=== PATIENT | female | born 1985 | race Two or more races ===

== ENCOUNTER 2021-03-22 19:35 | Emergency (ER) | payer BC ==
[~2021-03-22] VITALS: Ht 160 cm; Wt 59.0 kg
[2021-03-22] MEDS ORDERED: LORazepam 2MG/ML-1ML VIAL IV ONE (20:00)
[2021-03-22] MEDS ORDERED: SODIUM CHLORIDE 0.9% 1,000 ML IV ONE (20:00)
[2021-03-22 20:55] LABS: Basophils # (auto) 0 10 ^3/uL (0-0.2); Basophils % (auto) 0.2 % (0.0-2.0); Eosinophils # (auto) 0 10 ^3/uL (0-0.8); Eosinophils % (auto) 0.1 % (0.0-7.0); Hematocrit 37.8 % (36.0-46.0); Hemoglobin 12.1 g/dL (12.2-16.2); Lymphocytes # (auto) 0.6 10 ^3/uL (0.4-5.4); Lymphocytes % (auto) 4.7 % (10.0-50.0); Mean Corpuscular Hemoglobin 27.7 pg (28.0-32.0); Mean Corpuscular Hgb Conc. 32.1 g/dL (32.0-36.0); Mean Corpuscular Volume 86.3 fL (80.0-100.0); Monocytes # (auto) 0.8 10 ^3/uL (0-1.3); Monocytes % (auto) 5.8 % (0.0-12.0); Neutrophils # (auto) 11.6 10 ^3/uL (1.6-8.6); Neutrophils % (auto) 89.2 % (37.0-80.0); Red Blood Cells 4.38 10^6/uL (4.0-5.20); White Blood Cell 13.1 10^3/uL (4.4-10.8)
[2021-03-22 21:11] LABS: INR 1.11 (0.9-1.15); Partial Thromboplastin Time 24.2 sec (23.6-33.0)
[2021-03-22 21:16] LABS: Albumin 3.7 g/dL (3.4-5.0); Calcium 7.9 mg/dL (8.5-10.1); Magnesium 2.2 mg/dL (1.6-2.6); Potassium 3.7 mmol/L (3.5-5.1)
[2021-03-22 21:22] LABS: BUN/Creatinine Ratio 18.4; Bilirubin, Total 0.5 mg/dL (0.2-1.0); Total Protein 6.7 g/dL (6.4-8.2)
[2021-03-23 00:52] LABS: Urine Bacteria NONE SEEN /hpf (None Seen); Urine Blood Negative /uL (Negative); Urine Mucus FEW (None Seen); Urine Specific Gravity 1.026 (1.001-1.035); Urine WBC 1 /hpf (0 - 5)
[2021-03-23 02:55] VITALS: BP 131/84
== END 2021-03-23 03:06 | disposition home or self-care (01) ==
LOC: ER 19:35 → EDBD 19:35 → EDUNIT# 19:35 → ER 03-23 03:06
DX: R10.13 Epigastric pain (principal); R11.2 Nausea with vomiting, unspecified; R19.7 Diarrhea, unspecified
CPT/HCPCS: 36415; 80053; 81001; 83735; 83880; 84484; 84702; 85025; 85610; 85730; 93005; 96361; 96374; 99284; J2060; J7030; 96366

== ENCOUNTER 2024-04-30 01:38 | Inpatient (IN) | payer BC, MEDICARE ==
[~2024-04-30] VITALS: Ht 160 cm; Wt 65.3 kg
--- NOTE | 2024-04-30 02:32 | ED.PDOC ---
History of Present Illness HPI Comments 38-year-old female is [id number]-ambulance for complaint of back pain, today. Per EMS report, patient endorses on ongoing back pain for the past 3x days following unprovoked and gradual onset that, suddenly, worsened, while asleep, 2 hours prior to ED arrival. She reports on pain being throughout her entire back, with no prior history of, that starts from the base of her neck and radiates to her tailbone, that worsens with movement and deep breathing and is more severe in her upper-back region than her lower-back region. Patient then elaborates on pain feeling similar to "multiple hammers banging against [her] spine" and having no relief with at-home prescription muscle relaxer use. Patient admits to medical history of anxiety, degenerative disc disorder of the cervical spine, epilepsy, lupus, radiculopathy, rheumatoid arthritis, and scoliosis and reports no recent significant events, such as injuries. Patient's vitals were commented by EMS to have been stable and within normal limits on scene and en route. She denies having headache, weakness, numbness, tingling, or other associated symptoms or modifiers at this time. Chief Complaint: Back Pain Time Seen by MD: 02:10 Primary Care Provider: GREGORIO Reviewed Notes: Nurses Notes, Quiller Runner Notes, Medications, Allergies Allergies: Coded Allergies: NO KNOWN ALLERGIES (Unverified , 11/23/14) Information Source: Patient, Emergency Med Personnel Mode of Arrival: EMS Severity: Moderate Timing: Days Duration: Since onset Prehospital treatment: 12 Lead EKG, Bacteriology Research Assistant Past Medical History PAST MEDICAL HISTORY: Anxiety, Seizures (epilepsy) Past Medical History (Other): degenerative disc disorder of the cervical spine, lupus, radiculopathy, rheumatoid arthritis, and scoliosis Surgical History: 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: No Pertinent 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 Family History Family History: No family hx of Cancer, No family hx of Heart isaiah, No family hx of HTN Social History Smoker: Non-Smoker Alcohol: Denies ETOH Use Drugs: Denies Drug Use Lives In: Home All Other Systems: Reviewed and Negative (Comprehensive systems review obtained and negative except for what is stated in the HPI.) Physical Exam General Appearance: No Apparent Distress, Normal, Other (appears uncomfortable) HEENT: Normal ENT Inspection, Pharynx Normal, TMs Normal Neck: Full Range of Motion, Non-Tender, Normal, Normal Inspection Respiratory: Chest Non-Tender, Lungs Clear, No Accessory Muscle Use, No Respiratory Distress, Normal Breath Sounds Cardiovascular: No Edema, No JVD, No Murmur, No Gallop, Normal Peripheral Pulses, Regular Rate/Rhythm Breast Exam: Deferred Gastrointestinal: No Organomegaly, Non Tender, No Pulsatile Mass, Normal Bowel Sounds, Soft Genitalia: Deferred Pelvic: Deferred Rectal: Deferred Extremities: No calf tenderness, Normal capillary refill, Normal inspection, Normal range of motion, Non-tender, No pedal edema Musculoskeletal : Apperance: Normal Neurologic: Alert, childrens club attendant II-XII nml as Tested, No Motor Deficits, Normal Affect, Normal Mood, No Sensory Deficits Cerebellar Function: Normal Reflexes: Normal Skin: Dry, Normal Color, Warm Lymphatic: No Adenopathy Was a procedure done? Was a procedure done?: No Differential Dx Considerations may include: Anxiety, musculoskeletal pain, arthritis, degenerative disc disease, radiculopathy, lupus flare-up, scoliosis X-Ray, Labs, Meds, VS Vital Signs Date Time Temp Pulse Resp B/P (MAP) Pulse Ox O2 Delivery O2 Flow Rate FiO2 04/30/24 02:33 98.2 79 21 116/75 (89) 100 98.2 04/30/24 01:46 98.4 94 24 103/52 (69) 96 Lab Test 04/30/24 02:23 Range/Units White Blood Count 6.4 4.4-10.8 10^3/uL Red Blood Count 4.58 4.0-5.20 10^6/uL Hemoglobin 13.2 12.2-16.2 g/dL Hematocrit 39.9 36.0-46.0 % Mean Corpuscular Volume 87.1 80.0-100.0 fL Mean Corpuscular Hemoglobin 28.7 28.0-32.0 pg Mean Corpuscular Hemoglobin Concent 33.0 32.0-36.0 g/dL Red Cell Distribution Width 12.8 11.8-14.3 % Platelet Count 216 140-450 10^3/uL Mean Platelet Volume 7.4 6.9-10.8 fL Neutrophils (%) (Auto) 40.3 37.0-80.0 % Lymphocytes (%) (Auto) 48.5 10.0-50.0 % Monocytes (%) (Auto) 10.7 0.0-12.0 % Eosinophils (%) (Auto) 0.1 0.0-7.0 % Basophils (%) (Auto) 0.4 0.0-2.0 % Neutrophils # (Auto) 2.6 1.6-8.6 10 ^3/uL Lymphocytes # (Auto) 3.1 0.4-5.4 10 ^3/uL Monocytes # (Auto) 0.7 0-1.3 10 ^3/uL Eosinophils # (Auto) 0 0-0.8 10 ^3/uL Basophils # (Auto) 0 0-0.2 10 ^3/uL Nucleated Red Blood Cells 0.1 % Sodium Level 139 136-145 mmol/L Potassium Level 3.9 3.5-5.1 mmol/L Chloride Level 105 98-107 mmol/L Carbon Dioxide Level 25 20-31 mmol/L Anion Gap 9 5-15 Blood Urea Nitrogen 12 9-23 mg/dL Creatinine 0.69 0.550-1.02 mg/dL Glomerular Filtration Rate Calc 115 >90 mL/min BUN/Creatinine Ratio 17.4 10.0-20.0 Serum Glucose 94 74-106 mg/dL Calcium Level 9.7 8.7-10.4 mg/dL Current Medications Medications (Trade) Dose Ordered Sig/Juliana Route Start Time Stop Time Status Last Admin Ketorolac Tromethamine (Toradol Injection) 15 mg ONCE ONCE IV 04/30/24 02:15 04/30/24 02:16 DC 04/30/24 02:47 Time of 1ST Reevaluation: 03:40 Reevaluation 1ST: Unchanged Patient Education/Counseling: Diagnosis, Treatment Family Education/Counseling: No Family Present Additional Information Previous visit documents reviewed: 03/22/2021 The following tests were ordered, and results were reviewed by me: UA, CBC, BMP Additional Information was gathered from interviewing the following independent historians: EMS I discussed treatment and results with medical personnel and: patient Departure 1 Departure Time of Disposition: 02:59 (Patient with severe intractable thoracic back pain. Patient with difficulty moving. Patient has red flags for back pain. We will admit patient for further workup and expert consultation) Impression: Primary Impression: Acute thoracic back pain Qualified Codes: M54.6 - Pain in thoracic spine Additional Impression: Generalized weakness Disposition: 09 ADMITTED INPATIENT Admit to: Med Surg Condition: Serious Critical Care Note Critical Care Time?: No Stability Stability form required: No Heart Score Heart Score: Heart Score Response (Comments) Value History N/A 0 EKG N/A 0 Age N/A 0 Risk Factors N/A 0 Troponin N/A 0 Total 0 I personally scribed for ELLIS JOE MD ([email or web address]) on 04/30/24 at 02:32. Electronically submitted by Bhavik Hollis ([email or web address]). ELLIS JOE MD Apr 30, 2024 02:32
[2024-04-30 02:37] LABS: Basophils # (auto) 0 10 ^3/uL (0-0.2); Basophils % (auto) 0.4 % (0.0-2.0); Eosinophils # (auto) 0 10 ^3/uL (0-0.8); Eosinophils % (auto) 0.1 % (0.0-7.0); Hematocrit 39.9 % (36.0-46.0); Hemoglobin 13.2 g/dL (12.2-16.2); Lymphocytes # (auto) 3.1 10 ^3/uL (0.4-5.4); Lymphocytes % (auto) 48.5 % (10.0-50.0); Mean Corpuscular Hemoglobin 28.7 pg (28.0-32.0); Mean Corpuscular Volume 87.1 fL (80.0-100.0); Monocytes # (auto) 0.7 10 ^3/uL (0-1.3); Monocytes % (auto) 10.7 % (0.0-12.0); Neutrophils # (auto) 2.6 10 ^3/uL (1.6-8.6); Neutrophils % (auto) 40.3 % (37.0-80.0); Nucleated Red Blood Cells % 0.1 %; Platelet Count (auto) 216 10^3/uL (140-450); Red Blood Cells 4.58 10^6/uL (4.0-5.20); Red Cell Distribution Width 12.8 % (11.8-14.3); White Blood Cell 6.4 10^3/uL (4.4-10.8)
[2024-04-30 02:44] LABS: Chloride 105 mmol/L (98-107); Potassium 3.9 mmol/L (3.5-5.1); Sodium 139 mmol/L (136-145)
[2024-04-30 02:45] LABS: Anion Gap 9 (5-15); Calcium 9.7 mg/dL (8.7-10.4); Carbon Dioxide 25 mmol/L (20-31)
[2024-04-30] MEDS: KETOROLAC TROMETH 30 MG/ML 1ML VIAL IV ONE (02:47)
[2024-04-30 02:50] LABS: BUN/Creatinine Ratio 17.4 (10.0-20.0); Blood Urea Nitrogen 12 mg/dL (9-23); Glucose 94 mg/dL (74-106)
[2024-04-30] MEDS: MIDAZOLAM HCL 2MG/2ML 2ml VIAL (1mg/ml) IV ONE (03:33)
--- NOTE | 2024-04-30 03:56 | DVH ---
CHEST RADIOGRAPH Indication: thoracic pain Technique: Single frontal view of the chest was obtained Comparison: None IMPRESSION: Heart appears normal in size. The lungs appear clear without focal airspace opacity, effusion, or pn eumothorax
[2024-04-30] MEDS ORDERED: ACETAMINOPHEN 325 MG TAB PO PRN (04:15)
[2024-04-30 04:40] LABS: Alanine Aminotransferase 29 U/L (7-40); Albumin 4.4 g/dL (3.2-4.8); Alkaline Phosphatase 96 U/L (46-116); Aspartate Aminotransferase 22 U/L (13-40); Magnesium 2.1 mg/dL (1.6-2.6); Total Protein 6.6 g/dL (5.7-8.2)
[2024-04-30 04:41] LABS: Bilirubin, Direct < 0.1 mg/dL (<0.3); Bilirubin, Total < 0.2 mg/dL (0.2-1.0); Blood Alcohol < 3.0 mg/dL (<10); INR 1.03 (0.9-1.15); Partial Thromboplastin Time 27.1 SEC (24.5-34.5); Prothrombin Time 10.9 sec (9.3-11.8)
[2024-04-30] MEDS: SODIUM CHLORIDE 0.9% 1,000 ML IV SCH (04:46)
[2024-04-30] MEDS: HYDROcodone-ACET 7.5/325MG TAB PO ONE (04:46)
[2024-04-30 05:01] VITALS: PULSE 79; RESP 21; O2SAT 100
--- NOTE | 2024-04-30 05:20 | DVH ---
EXAM: CT Cervical Spine Without Intravenous Contrast CLINICAL INDICATION: Degenerative disc disorder TECHNIQUE: Axial computed tomography images of the cervical spine without intravenous contrast. Thi s CT exam was performed using one or more of the following dose reduction techniques: automated expo sure control, adjustment of the mA and/or kV according to patient size, and/or use of iterative recon struction technique. CONTRAST: COMPARISON: None FINDINGS: VERTEBRAE: Unremarkable. No acute fracture. DISCS/SPINAL CANAL/NEURAL FORAMINA: No acute findings. No significant spinal canal stenosis. SOFT TISSUES: Unremarkable. LUNG APICES: Partially visualized lung emphysema. OTHER FINDINGS: . IMPRESSION: No acute fracture.
[2024-04-30 05:23] LABS: Urine Bacteria None Seen /hpf (None Seen); Urine Blood Negative /uL (Negative); Urine Budding Yeast OCCASIONAL /hpf (None Seen); Urine Clarity Clear (Clear); Urine Color Light-Yellow (Yellow); Urine Protein, UAD Negative (Negative); Urine Specific Gravity 1.012 (1.001-1.035); Urine Squamous Epithelial Cell FEW /hpf (<5); Urine Urobilinogen Normal (Negative)
--- NOTE | 2024-04-30 05:26 | DVH ---
EXAM: CT Thoracic and Lumbar Spine Without Intravenous Contrast CLINICAL INDICATION: Disc degenerative changes TECHNIQUE: Axial computed tomography images of the thoracic and lumbar spine without intravenous con trast. This CT exam was performed using one or more of the following dose reduction techniques: aut omated exposure control, adjustment of the mA and/or kV according to patient size, and/or use of iter ative reconstruction technique. CONTRAST: COMPARISON: None FINDINGS: VERTEBRAE: Unremarkable. No acute fracture. DISCS/SPINAL CANAL/NEURAL FORAMINA: No acute findings. No significant spinal canal stenosis. SOFT TISSUES: Unremarkable. LUNGS AND PLEURAL SPACES: Partially visualized lung emphysema. Dependent atelectasis, bilaterally. OTHER FINDINGS: . IMPRESSION: No acute findings in the thoracic or lumbar spine.
[2024-04-30 05:35] LABS: Erythrocyte Sedimentation Rate 2 mm/hr (0-20)
[2024-04-30 05:39] LABS: Barbiturate Scree,Urine Neg (NEGATIVE); Benzodiazephine Screen, Urine Neg (NEGATIVE)
--- NOTE | 2024-04-30 05:50 | DVHHPRES ---
History of Present Illness Resident Creating Document: ISAI EVANS RESIDENT History of Present Illness Nidia Lr is a 38 years old female with a PMH of degenerative disc disorder of cervical spine, radiculopathy, lupus, scoliosis, anxiety, seizures presented to the ED with a chief complaints of worsening of upper back pain for three days. Patient reported three days back while lifting heavy objects patient felt discomfort, soreness in upper back which has been gradually progressing worsened today night, woke up in the sleep with a severe pain worsened with upper and lower extremity movement and neck movements, felt like spine is breaking into pieces , called EMS and got here. Patient reported she does have history of scoliosis and she will occasional back pain but she never felt pain like this before. On my assessment patient denies fever, joint pain, chest pain, abdominal pain, recent trauma and other associated symptoms. PMH:degenerative disc disorder of cervical spine, radiculopathy, lupus for one and half years scoliosis, anxiety, seizures since 15 years old, lupus since one and [age] year. PSH: Temporal lobectomy Family history: Breast and liver cancer maternal aunts Social history: Lives with family. Denies smoking, alcohol and other drug abuse Allergies: No known allergies Home medications: Dilantin 200 two tablets night, gabapentin 600 mg b.i.d., Zoloft Review of Systems Constitutional: No: Fever, Chills, Sweats, Weakness, Malaise, Other Eyes: No: Pain, Vision change, Conjunctivae inflammation, Eyelid inflammation, Other, Redness ENT: No: Ear pain, Ear discharge, Nose pain, Nose discharge, Nose congestion, Mouth pain, Mouth swelling, Throat pain, Throat swelling, Other Respiratory: No: Cough, Dry, Shortness of breath, SOB with excertion, Wheezing, Hemoptysis, Pleuritic Pain, Sputum, Wheezing, Other Cardiovascular: No: Chest Pain, Palpitations, Orthopnea, Paroxysmal Noc. Dyspnea, Edema, Lt Headedness, Other Genitourinary: No Dysuria, No Frequency, No Incontinence, No Hematuria, No Retention, No Other Musculoskeletal: neck pain, back pain Skin: No: Rash, Lesions, Jaundice, Bruising, Other Neurological: No: Weakness, Numbness, Incoordination, Change in speech, Confusion, Seizures, Other Allergies: Coded Allergies: NO KNOWN ALLERGIES (Unverified , 11/23/14) Medications Current Medications Medications Dose Ordered Sig/Julinaa Route Start Time Stop Time Status Last Admin Dose Admin Sodium Chloride 10 ml Q8HR IV 04/30/24 06:00 Sodium Chloride 1,000 ml @ 60 mls/hr [id number] IV 04/30/24 04:15 04/30/24 04:46 60 MLS/HR Acetaminophen/ Hydrocodone Bitart 1 tab Q4HP PRN PO 04/30/24 04:15 Ondansetron HCl 4 mg Q4HP PRN IV 04/30/24 04:15 Enoxaparin Sodium 40 mg DAILY SC 04/30/24 10:00 Acetaminophen 650 mg Q6HP PRN PO 04/30/24 04:15 Morphine Sulfate 2 mg Q4HPRN PRN IV 04/30/24 04:15 Phenytoin Sodium 200 mg QPM PO 04/30/24 18:00 Gabapentin 600 mg TID PO 04/30/24 06:00 Exam Vital Signs Vital Signs Date Time Temp Pulse Resp B/P (MAP) Pulse Ox O2 Delivery O2 Flow Rate FiO2 04/30/24 05:01 79 21 100 Nasal Cannula* 3 32 04/30/24 04:57 116/75 (89) 04/30/24 02:33 98.2 98.2 Exam Neck pain, back pain Pt is lying on bed General Appearance: Alert, Oriented X3, Cooperative, severe distress HEENT: Atraumatic, Mucous membranes moist/pink Respiratory: Clear to auscultation, Normal air movement, No added sounds Cardiovascular: Regular rate, Normal S1, Normal S2, No murmurs Abdominal: Active bowel sounds, Soft, no distention, no tenderness Extremities: No edema, Normal pulses, No tenderness/swelling MSK: Severe pain and tenderness in spine to passive movement neck, upper and lower extremities Skin: No Significant rash, except past surgical scars Neuro: Normal speech, sensorimotor deficits none Psych/Mental Status: Mental status NL, Mood NL Nurse was there as sharperone during examination Labs/Xrays Labs Test 04/30/24 04:44 04/30/24 04:30 04/30/24 04:03 04/30/24 04:00 Range/Units B-Type Natriuretic Peptide 17.12 0-100 pg/mL Hemoglobin A1c 5.1 <5.7 % A1C Test 04/30/24 02:23 Range/Units White Blood Count 6.4 4.4-10.8 10^3/uL Red Blood Count 4.58 4.0-5.20 10^6/uL Hemoglobin 13.2 12.2-16.2 g/dL Hematocrit 39.9 36.0-46.0 % Mean Corpuscular Volume 87.1 80.0-100.0 fL Mean Corpuscular Hemoglobin 28.7 28.0-32.0 pg Mean Corpuscular Hemoglobin Concent 33.0 32.0-36.0 g/dL Red Cell Distribution Width 12.8 11.8-14.3 % Platelet Count 216 140-450 10^3/uL Mean Platelet Volume 7.4 6.9-10.8 fL Neutrophils (%) (Auto) 40.3 37.0-80.0 % Lymphocytes (%) (Auto) 48.5 10.0-50.0 % Monocytes (%) (Auto) 10.7 0.0-12.0 % Eosinophils (%) (Auto) 0.1 0.0-7.0 % Basophils (%) (Auto) 0.4 0.0-2.0 % Neutrophils # (Auto) 2.6 1.6-8.6 10 ^3/uL Lymphocytes # (Auto) 3.1 0.4-5.4 10 ^3/uL Monocytes # (Auto) 0.7 0-1.3 10 ^3/uL Eosinophils # (Auto) 0 0-0.8 10 ^3/uL Basophils # (Auto) 0 0-0.2 10 ^3/uL Nucleated Red Blood Cells 0.1 % Erythrocyte Sedimentation Rate 2 0-20 mm/hr Prothrombin Time 10.9 9.3-11.8 sec Prothrombin Time INR 1.03 0.9-1.15 Activated Partial Thromboplast Time 27.1 24.5-34.5 SEC Sodium Level 139 136-145 mmol/L Potassium Level 3.9 3.5-5.1 mmol/L Chloride Level 105 98-107 mmol/L Carbon Dioxide Level 25 20-31 mmol/L Anion Gap 9 5-15 Blood Urea Nitrogen 12 9-23 mg/dL Creatinine 0.69 0.550-1.02 mg/dL Glomerular Filtration Rate Calc 115 >90 mL/min BUN/Creatinine Ratio 17.4 10.0-20.0 Serum Glucose 94 74-106 mg/dL Lactic Acid Level 1.0 0.4-2.0 mmol/L Calcium Level 9.7 8.7-10.4 mg/dL Magnesium Level 2.1 1.6-2.6 mg/dL Total Bilirubin < 0.2 L 0.2-1.0 mg/dL Direct Bilirubin < 0.1 <0.3 mg/dL Aspartate Amino Transferase (AST) 22 13-40 U/L Alanine Aminotransferase (ALT) 29 7-40 U/L Alkaline Phosphatase 96 46-116 U/L Total Protein 6.6 5.7-8.2 g/dL Albumin 4.4 3.2-4.8 g/dL Thyroid Stimulating Hormone (TSH) 2.66 0.55-4.78 uIU/mL Beta HCG, Quantitative 0.6 L 1.5-4.2 mIU/mL Plasma/Serum Blood Alcohol < 3.0 <10 mg/dL Assessment/Plan Assessment/Plan # Acute upper back pain # ? cervical radiculopathy # rule out spinal stenosis -CT showed no acute changes -consider MRI -physical therapy -pain management # history of lupus -outpatient follow up # seizure disorder -resumed home meds No GI ppx Lovenox Cardiac diet Goals of care discussed with the patient for more than 29 minutes: Full code status Case discussed with Dr. Sims, patient and nurse Plan discussed with: Patient My Orders Orders - ISAI EVANS RESIDENT Procedure Category Date Status Time Admit ADMIT 04/30/24 Transmitted 04:03 Allergies KUSHAL 04/30/24 In Process 04:03 Code Status CODE 04/30/24 Transmitted 04:03 Sodium Chloride Lock PHA 04/30/24 In Process (Saline Lock Ns) 06:00 Sodium Chloride 0.9% PHA 04/30/24 In Process 04:15 Hydrocodone-Acet PHA 04/30/24 In Process 5/325mg Tab (Chauncey 04:15 Ondansetron Hcl PHA 04/30/24 In Process (Zofran) 04:15 Enoxaparin Sodium PHA 04/30/24 In Process (Lovenox) 10:00 Cardiac DIET 04/30/24 Transmitted Diet-2gna,Lofat,Lochol Breakfast Condition: Stable KUSHAL 04/30/24 In Process 04:03 Acetaminophen Tablet PHA 04/30/24 In Process (Tylenol Tablet) 04:15 Morphine Sulfate PHA 04/30/24 In Process Injection 04:15 Hepatic Panel LAB 04/30/24 In Process 04:03 Blood Alcohol LAB 04/30/24 In Process 04:03 C-Reactive Protein LAB 04/30/24 In Process 04:03 Covid19 Antigen Anisa LAB 04/30/24 In Process Drug Screen LAB 04/30/24 Logged 04:03 Magnesium LAB 04/30/24 In Process 04:03 Rapid Influenza A&B LAB 04/30/24 In Process 04:03 Urinalysis LAB 04/30/24 Logged 04:03 Insert Lucero Catheter KUSHAL 04/30/24 In Process 04:11 Phenytoin Capsule PHA 04/30/24 In Process (Dilantin Capsule) 18:00 Gabapentin Capsule PHA 04/30/24 In Process (Neurontin Capsule) 06:[address] 04/30/24 Resulted Contrast 04:[address] 04/30/24 Resulted Contras 04:25 Date of Service: Apr 30, 2024 Billing Provider: DAVION SIMS MD Common Visit Codes: [id number] INP/OBS CARE (HIGH) ISAI EVANS RESIDENT Apr 30, 2024 05:50 DAVION SIMS MD Apr 30, 2024 17:54
[2024-04-30 05:55] LABS: Amphetamine Screen, Urine Neg (NEGATIVE); Cannabinoid Screen, Urine Neg (NEGATIVE); Cocaine Screen, Urine Neg (NEGATIVE); Opiate Scree,Urine Neg (NEGATIVE); Phencyclidine Screen, Urine Neg (NEGATIVE)
[2024-04-30 05:58] LABS: COVID19 ANTIGEN SOFIA FIA NEGATIVE (NEGATIVE)
[2024-04-30 05:58] LABS: Rapid Influenza A Negative (Negative); Rapid Influenza B Negative (Negative)
[2024-04-30 06:05] LABS: CRP High Sensitivity 0.03 mg/dL (<1.0)
[2024-04-30] MEDS: SODIUM CHLOR 0.9% PF (SALINE LOCK) 10ML VIAL/SYR IV SCH (06:17)
[2024-04-30] MEDS: GABAPENTIN 300 MG CAP PO SCH (06:18)
[2024-04-30] MEDS ORDERED: ACETAMINOPHEN 325 MG TAB PO SCH (09:30)
[2024-04-30] MEDS: ENOXAPARIN SOD 40 MG/0.4 ML SYRINGE SC SCH (09:33)
--- NOTE | 2024-04-30 09:49 | DVHPNRES ---
Progress Note Date Seen: Apr 30, 2024 Resident Creating Document: NANCY ALLEN RESIDENT Medical Necessity Reason Pt with a Central, PICC or Fol: No Subjective Review of Systems This is a 38-year-old female with past medical history of epileptic seizures status post brain surgery 2019 on Dilantin, right shoulder radiculopathy, SLE not on medications, C-spine degenerative disease, scoliosis, anxiety presented to the ER with a chief complaint of severe intractable neck and back pain for the past 3 days. 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 Patient reports that she was feeling sore 3 days back during work, and that she woke up from sleep with intense 10/10 back pain from the neck to the lowest edge of the shoulder blades. She has been experiencing this pain for the past 3 nights, last night it was unbearable and therefore she decided to call EMS. She denies loss of urine or stool. Reports chronic constipation, last bowel movement four days back. Her pain worsens with any kind of bodily movements, more with left arm and left leg movement as compared to the right. She denies fever or chills or any trauma. Reports tingling of the bilateral arms. Denies muscle weakness. Reports last seizure was in February. On arrival, CT thoracic spine and cervical spine were completed which were unremarkable. Past medical/surgical history: See above Family history: Breast and liver cancer in maternal aunt Social history lives with mom and has 2 kids. Denies smoking/alcohol/drug use Home medications: Dilantin, gabapentin, Zoloft, ibuprofen, used hydroxychloroquine which did not improve her SLE, used Benlysta but stopped due to adverse effects. Patient seen and examined at the ER bedside. She is lying still in the bed, not moving due to the pain. Objective vital signs Vital Sign Date Time Temp Pulse Resp B/P (MAP) Pulse Ox O2 Delivery O2 Flow Rate FiO2 04/30/24 09:00 78 18 97/66 (76) 100 04/30/24 07:15 98.1 98.1 04/30/24 05:01 Nasal Cannula* 3 32 Total Intake and Output 04/29/24 04/29/24 04/30/24 15:00 23:00 07:00 Intake Total 120 ml Balance 120 ml medications Current Medications Medications Dose Ordered Sig/Juliana Route Start Time Stop Time Status Last Admin Dose Admin Sodium Chloride 10 ml Q8HR IV 04/30/24 06:00 04/30/24 06:17 10 ML Sodium Chloride 1,000 ml @ 60 mls/hr [id number] IV 04/30/24 04:15 04/30/24 04:46 60 MLS/HR Acetaminophen/ Hydrocodone Bitart 1 tab Q4HP PRN PO 04/30/24 04:15 Ondansetron HCl 4 mg Q4HP PRN IV 04/30/24 04:15 Enoxaparin Sodium 40 mg DAILY SC 04/30/24 10:00 04/30/24 09:33 40 MG Morphine Sulfate 2 mg Q4HPRN PRN IV 04/30/24 04:15 Phenytoin Sodium 200 mg QPM PO 04/30/24 18:00 Gabapentin 600 mg TID PO 04/30/24 06:00 04/30/24 06:18 600 MG Acetaminophen 650 mg Q6H PO 04/30/24 09:30 UNV Examination Young female patient lying in bed, in no acute distress General: Well-built, afebrile, palor, mucosae are moist Cardiovascular: Regular S1 and S2. No murmurs, gallops or rubs. No JVD elevation. No pedal edema Respiratory: Normal B/L air entry on room air. Clear lung sounds on auscultation Abdomen: Soft, nontender, nondistended, normoactive bowel sounds, no rebound tenderness, no organomegaly, no masses Genitourinary: Deferred MSK/skin: Mobilizes 4 limbs. Skin is dry and warm Neurological: No motor, no sensitive deficits, normal speech. Pupils are isocoric and reactive.. Severe back pain with movement of left upper extremity more than 30 and left lower extremity. Midline tenderness in the back. Psych/Mental Status: A/Ox3 laboratory and microbiology Laboratory Tests 04/30/24 02:23 Test 04/30/24 02:23 Range/Units Serum Glucose 94 74-106 mg/dL Labs and/or images reviewed: Labs reviewed by me, Image(s) reviewed by me Problem List/Assessment/Plan Problem List/Assessment/Plan Acute onset intractable back pain - differentials include spinal stenosis, degenerative disc disease, compression fracture Incapacitating neck pain with clinical suspicion of cervical radiculopathy Loss of lordosis and disc space narrowing at C5/6 and C6/7 History of degenerative disc disease History of Right shoulder radiculopathy History of scoliosis CT cervical/thoracic spine completed, unremarkable Physical therapy consulted Spinal surgeon consulted-This doesn't appear to be a surgical emergency. We will wait for MRI results to make definitive decision. Recommended IV Solu- Medrol 80 mg Q 8 hourly MRI cervical and thoracic spine pending SLE Denies taking any medication Previously used hydroxychloroquine and Benlysta History of epileptic seizures status post brain surgery 2019 Patient takes Dilantin Last seizure March 16, 2024 History of anxiety Lovenox 40 mg sc daily Regular diet Plan discussed with patient in which all questions have been answered Goals of care discussed with patient for more than 20 minutes, full code status Case discussed with Dr. Corral Plan discussed with: Patient My Orders My Orders Orders - NANCY ALLEN Procedure Category Date Status Time Acetaminophen Tablet PHA 04/30/24 Logged (Tylenol Tablet) 09:30 NANCY ALLEN Apr 30, 2024 09:49
[2024-04-30] MEDS: BACLOFEN 10 MG TAB PO ONE (11:10)
[2024-04-30] MEDS: LORazepam 2MG/ML-1ML VIAL IV ONE (11:13)
[2024-04-30] MEDS: ACETAMINOPHEN 325 MG TAB PO SCH (12:00)
--- NOTE | 2024-04-30 12:03 | DVHINCON2 ---
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 she doesn't have bowel or bladder incontinence but she is unable to get out of bed due to the suffering. no f/c/night sweats no specific inciting trauma no prior spine surgery Allergies and medications Allergies: Coded Allergies: NO KNOWN ALLERGIES (Unverified , 11/23/14) Review of systems Review of Systems: HEENT:Normal, CVS:Normal, RESPIRATORY:Abnormal, :Normal, MSK:Normal, NEURO:Abnormal Examination Vital signs Vital Signs Date Time Temp Pulse Resp B/P (MAP) Pulse Ox O2 Delivery O2 Flow Rate FiO2 04/30/24 10:36 90 19 94/58 (70) 100 04/30/24 07:15 98.1 98.1 04/30/24 05:01 Nasal Cannula* 3 32 Medications Current Medications Medications (Trade) Dose Ordered Sig/Juliana Route PRN Reason Start Time Stop Time Status Last Admin Sodium Chloride (Saline Lock Ns) 10 ml Q8HR IV 04/30/24 06:00 04/30/24 06:17 Sodium Chloride 1,000 ml @ 60 mls/hr [id number] IV 04/30/24 04:15 04/30/24 04:46 Acetaminophen/ Hydrocodone Bitart ([place] 5/325MG Tab) 1 tab Q4HP PRN PO MODERATE PAIN (4-6 PAIN SCALE) 04/30/24 04:15 Ondansetron HCl (Zofran) 4 mg Q4HP PRN IV NAUSEA / VOMITING 04/30/24 04:15 Enoxaparin Sodium (Lovenox) 40 mg DAILY SC 04/30/24 10:00 04/30/24 09:33 Acetaminophen (Tylenol Tablet) 650 mg Q6HP PRN PO PAIN SCALE 1-3 OR TEMP>100.4 04/30/24 04:15 04/30/24 09:29 DC Morphine Sulfate 2 mg Q4HPRN PRN IV SEVERE PAIN (7-10 PAIN SCALE) 04/30/24 04:15 Phenytoin Sodium (Dilantin Capsule) 200 mg QPM PO 04/30/24 18:00 Gabapentin (Neurontin Capsule) 600 mg TID PO 04/30/24 06:00 04/30/24 06:18 Acetaminophen (Tylenol Tablet) 650 mg Q6H PO 04/30/24 09:30 04/30/24 09:52 DC Acetaminophen (Tylenol Tablet) 650 mg Q6HPRN PO 04/30/24 12:00 Baclofen (Liorisal Tablet) 10 mg Q8HR PO 04/30/24 14:00 04/30/24 11:39 DC Baclofen (Liorisal Tablet) 10 mg BID PO 04/30/24 20:00 Methylprednisolone Sodium Succinate (Solu Medrol) 80 mg Q8HR IV 04/30/24 11:45 Laboratory [place] [address] Ph: [phone] DIAGNOSTIC IMAGING Diagnostic Imaging Report : [id number] Signed PATIENT: RONEL PAULINO ACCT: [id number] UNIT: [id number] : 1985 LOC: OVERFLOW ROOM / BED: [address] [place] [address] A AGE / SEX: 38 / F ADM STATUS: ADM IN SERVICE 2 ORDERING PHYSICIAN: ISAI EVANS RESIDENT PROCEDURE(s): CS2 - CERVICAL WITHOUT CONTRAST REASON: Degenerative disc disorder ORDER NUMBER(s): [id number], ACCESSION NUMBER(s): [id number] EXAM: CT Cervical Spine Without Intravenous Contrast CLINICAL INDICATION: Degenerative disc disorder TECHNIQUE: Axial computed tomography images of the cervical spine without intravenous contrast. This CT exam was performed using one or more of the following dose reduction techniques: automated exposure control, adjustment of the mA and/or kV according to patient size, and/or use of iterative reconstruction technique. CONTRAST: COMPARISON: None FINDINGS: VERTEBRAE: Unremarkable. No acute fracture. DISCS/SPINAL CANAL/NEURAL FORAMINA: No acute findings. No significant spinal canal stenosis. SOFT TISSUES: Unremarkable. LUNG APICES: Partially visualized lung emphysema. OTHER FINDINGS: . IMPRESSION: No acute fracture. ATED BY: MARTHA ABRAMS MD DICTATED DATE/TIME: 04/30/24517 SIGNED BY: MARTHA ABRAMS MD SIGNED DATE/TIME: 04/30/24 0518 CC: Labs Test 04/30/24 04:44 04/30/24 04:30 04/30/24 04:03 04/30/24 04:00 Range/Units B-Type Natriuretic Peptide 17.12 0-100 pg/mL SARS-CoV-2 Antigen (Rapid) Negative NEGATIVE Urine Color Light-yellow Yellow Urine Clarity Clear Clear Urine pH 8.0 5.0-9.0 Urine Specific [place] 1.012 1.001-1.035 Urine Protein Negative Negative Urine Ketones Negative Negative Urine Blood Negative Negative /uL Urine Nitrite Negative Negative Urine Bilirubin Negative Negative Urine Urobilinogen Normal Negative mg/dL Urine Leukocyte Esterase Negative Negative /uL Urine RBC 1 0 - 4 /hpf Urine Microscopic WBC 0-5 /HPF Urine Squamous Epithelial Cells Few <5 /hpf Urine Bacteria None seen None Seen /hpf Urine Yeast (Budding) Occasional None Seen /hpf Urine Glucose Normal Normal mg/dL Urine Opiates Screen Neg NEGATIVE Urine Fentanyl Screen Neg NEGATIVE Urine Barbiturates Screen Neg NEGATIVE Urine Phencyclidine Screen Neg NEGATIVE Urine Amphetamines Screen Neg NEGATIVE Urine Benzodiazepines Screen Neg NEGATIVE Urine Cocaine Screen Neg NEGATIVE Urine Cannabinoids Screen Neg NEGATIVE Influenza Type A Antigen Negative Negative Influenza Type B Antigen Negative Negative Hemoglobin A1c 5.1 <5.7 % A1C Test 04/30/24 02:23 Range/Units White Blood Count 6.4 4.4-10.8 10^3/uL Red Blood Count 4.58 4.0-5.20 10^6/uL Hemoglobin 13.2 12.2-16.2 g/dL Hematocrit 39.9 36.0-46.0 % Mean Corpuscular Volume 87.1 80.0-100.0 fL Mean Corpuscular Hemoglobin 28.7 28.0-32.0 pg Mean Corpuscular Hemoglobin Concent 33.0 32.0-36.0 g/dL Red Cell Distribution Width 12.8 11.8-14.3 % Platelet Count 216 140-450 10^3/uL Mean Platelet Volume 7.4 6.9-10.8 fL Neutrophils (%) (Auto) 40.3 37.0-80.0 % Lymphocytes (%) (Auto) 48.5 10.0-50.0 % Monocytes (%) (Auto) 10.7 0.0-12.0 % Eosinophils (%) (Auto) 0.1 0.0-7.0 % Basophils (%) (Auto) 0.4 0.0-2.0 % Neutrophils # (Auto) 2.6 1.6-8.6 10 ^3/uL Lymphocytes # (Auto) 3.1 0.4-5.4 10 ^3/uL Monocytes # (Auto) 0.7 0-1.3 10 ^3/uL Eosinophils # (Auto) 0 0-0.8 10 ^3/uL Basophils # (Auto) 0 0-0.2 10 ^3/uL Nucleated Red Blood Cells 0.1 % Erythrocyte Sedimentation Rate 2 0-20 mm/hr Prothrombin Time 10.9 9.3-11.8 sec Prothrombin Time INR 1.03 0.9-1.15 Activated Partial Thromboplast Time 27.1 24.5-34.5 SEC Sodium Level 139 136-145 mmol/L Potassium Level 3.9 3.5-5.1 mmol/L Chloride Level 105 98-107 mmol/L Carbon Dioxide Level 25 20-31 mmol/L Anion Gap 9 5-15 Blood Urea Nitrogen 12 9-23 mg/dL Creatinine 0.69 0.550-1.02 mg/dL Glomerular Filtration Rate Calc 115 >90 mL/min BUN/Creatinine Ratio 17.4 10.0-20.0 Serum Glucose 94 74-106 mg/dL Lactic Acid Level 1.0 0.4-2.0 mmol/L Calcium Level 9.7 8.7-10.4 mg/dL Magnesium Level 2.1 1.6-2.6 mg/dL Total Bilirubin < 0.2 L 0.2-1.0 mg/dL Direct Bilirubin < 0.1 <0.3 mg/dL Aspartate Amino Transferase (AST) 22 13-40 U/L Alanine Aminotransferase (ALT) 29 7-40 U/L Alkaline Phosphatase 96 46-116 U/L C-Reactive Protein High Sensitivity 0.03 <1.0 mg/dL Total Protein 6.6 5.7-8.2 g/dL Albumin 4.4 3.2-4.8 g/dL Thyroid Stimulating Hormone (TSH) 2.66 0.55-4.78 uIU/mL Beta HCG, Quantitative 0.6 L 1.5-4.2 mIU/mL Plasma/Serum Blood Alcohol < 3.0 <10 mg/dL Examination: GENERAL:Normal, HEENT:Normal, NECK:Normal, LUNGS:Normal, ABDOMEN:Abnormal, NEURO:Abnormal Problem List/Assessment/Plan Problems: (1) Cervical radiculopathy Assessment and Plan Incapacitating neck pain with clinical suspicion of cervical radiculopathy MRI cervical spine is already ordered. the CT cervical spine reveals loss of lordosis and disc space narrowing at C5/6 and C6/7 This doesn't appear to be a surgical emergency. We will wait for MRI results to make definitive decision Plan discussed with Plan discussed with: Other BRIANA ADAN MD Apr 30, 2024 12:03
[2024-04-30] MEDS: methylPREDNISolone SOD SUCC 125 MG/2 ML VL IV SCH (12:33)
[2024-04-30 13:22] LABS: Folate (Folic Acid) 20.71 ng/mL (>5.38)
--- NOTE | 2024-04-30 13:31 | DVH ---
MRI CERVICAL SPINE CLINICAL HISTORY: Cervicalegia, hx of ddd with tingling in UE Comparison: CT CERVICAL WITHOUT CONTRAST on DOS: 04/30/24 Technique: Multi planar, multi sequence MR images of the cervical spine without intravenous contrast. FINDINGS: The cervical spinal cord demonstrates normal caliber and signal. There is retro cerebellar CSF collec tion in the posterior cranial fossa which May relate to judith cisterna magna versus arachnoid cyst. Th e craniocervical junction is within normal limits. The vertebral body heights and bone marrow signal are appropriate. There is straightening of the cervical lordosis. There is disc desiccation with disc space narrowing at C5-C6. At C2-C3, C3-C4 and C4-C5 there is no significant disc herniation. There is no spinal canal or neurof oraminal stenosis. At C5-C6 there is disc bulge and bilateral uncovertebral arthropathy, [id number]. There is no spinal canal stenosis. There is moderate left and mild right neural foraminal stenosis. At C6-C7 there is a 2-3 mm broad-based right paracentral disc protrusion. There is indentation of the ventral thecal sac without canal or neural foraminal stenosis. At C7-T1 there is no significant disc herniation. There is no spinal canal or neural foraminal steno sis. IMPRESSION: 1. Straightening of the cervical spine with degenerative disc changes at C5-C6 and C6-C7. There is n o spinal canal stenosis. 2. There is moderate left and mild right neural foraminal stenosis at C5-C6. HS:Y
[2024-04-30] MEDS ORDERED: BACLOFEN 10 MG TAB PO SCH (14:00)
[2024-04-30] MEDS: ONDANSETRON HCL 4 MG/2 ML VIAL IV PRN (14:38)
[2024-04-30] MEDS: MORPHINE SULFATE INJ 2 MG/ml SYRG IV PRN (14:39)
--- NOTE | 2024-04-30 15:38 | DVH ---
EXAM: MRI THORACIC SPINE WITHOUT HISTORY: Cervicalgia, hx of ddd COMPARISON: None TECHNIQUE: Multiplanar, multisequence MRI was performed. FINDINGS: VERTEBRAE: Normal in alignment and height. No suspicious bone marrow signal. INTERVERTEBRAL DISCS: No disc herniation. No significant central canal or neural foramina stenosis. No definite impingement of the bilateral exiting nerves and traversing nerve roots. SPINAL CORD: Normal morphology and signal without evidence for cord edema or myelomalacia. It termin ates at L1 level. PARASPINAL SOFT TISSUES: Unremarkable. OTHER: None. IMPRESSION: 1. No acute osseous abnormality of the thoracic spine, significant degenerative disc disease, central canal stenosis, neural foramina stenosis or nerve impingement.
[2024-04-30] MEDS: PHENYTOIN SODIUM 100 MG CAP PO SCH (18:12)
[2024-04-30] MEDS: BACLOFEN 10 MG TAB PO SCH (20:47)
[2024-04-30] MEDS: ERGOCALCIFEROL 50,000 UNIT(1.25MG) CAP PO SCH (20:47)
[2024-04-30] MEDS: HYDROcodone-ACET 5/325MG TAB PO PRN (23:49)
[2024-05-01] VITALS (8 sets, daily range): BP systolic 96–110; BP diastolic 62–68; PULSE 60–99; RESP 14–18; TEMP 97.5–98.2; O2SAT 96–100
[2024-05-01] MEDS ORDERED: CLON-1004 PO (00:52)
[2024-05-01] MEDS ORDERED: PHEN1CAP38 PO (00:53)
[2024-05-01] MEDS ORDERED: FOLI-119 PO (00:54)
[2024-05-01] MEDS ORDERED: GABA-339 PO (00:57)
[2024-05-01] MEDS ORDERED: NORT-22 PO (00:57)
[2024-05-01 07:12] LABS: Calcium 9.6 mg/dL (8.7-10.4); Potassium 4.3 mmol/L (3.5-5.1); Sodium 140 mmol/L (136-145)
[2024-05-01 07:13] LABS: Anion Gap 6 (5-15); Carbon Dioxide 26 mmol/L (20-31)
[2024-05-01 07:18] LABS: BUN/Creatinine Ratio 11.1 (10.0-20.0); Blood Urea Nitrogen 10 mg/dL (9-23)
[2024-05-01 07:19] LABS: Chloride 108 mmol/L (98-107); Glucose 125 mg/dL (74-106)
[2024-05-01] MEDS ORDERED: METH4PAK3 PO (11:37)
--- NOTE | 2024-05-01 17:10 | DVHDSRES ---
Discharge Summary Date of Admission Resident Creating Document: NANCY ALLEN RESIDENT Apr 30, 2024 at 04:03 Date of Discharge: May 01, 2024 Labs/Diagnostic Data: Laboratory Results Test 05/01/24 06:37 04/30/24 12:48 04/30/24 04:44 04/30/24 04:30 Sodium Level 140 mmol/L (136-145) Potassium Level 4.3 mmol/L (3.5-5.1) Chloride Level 108 mmol/L (98-107) Carbon Dioxide Level 26 mmol/L (20-31) Anion Gap 6 (5-15) Blood Urea Nitrogen 10 mg/dL (9-23) Creatinine 0.90 mg/dL (0.550-1.02) Glomerular Filtration Rate Calc 84 mL/min (>90) BUN/Creatinine Ratio 11.1 (10.0-20.0) Serum Glucose 125 mg/dL (74-106) Calcium Level 9.6 mg/dL (8.7-10.4) Vitamin B12 Level 740 pg/mL (211-911) Vitamin D 25-Hydroxy 36.8 ng/mL (30.0-100) Folic Acid 20.71 ng/mL (>5.38) B-Type Natriuretic Peptide 17.12 pg/mL (0-100) SARS-CoV-2 Antigen (Rapid) Negative (NEGATIVE) Test 04/30/24 04:03 04/30/24 04:00 04/30/24 02:23 Urine Color Light-yellow (Yellow) Urine Clarity Clear (Clear) Urine pH 8.0 (5.0-9.0) Urine Specific [place] 1.012 (1.001-1.035) Urine Protein Negative (Negative) Urine Ketones Negative (Negative) Urine Blood Negative /uL (Negative) Urine Nitrite Negative (Negative) Urine Bilirubin Negative (Negative) Urine Urobilinogen Normal mg/dL (Negative) Urine Leukocyte Esterase Negative /uL (Negative) Urine RBC 1 /hpf (0 - 4) Urine Microscopic WBC /HPF (0-5) Urine Squamous Epithelial Cells Few /hpf (<5) Urine Bacteria None seen /hpf (None Seen) Urine Yeast (Budding) Occasional /hpf (None Urine Glucose Normal mg/dL (Normal) Urine Opiates Screen Neg (NEGATIVE) Urine Fentanyl Screen Neg (NEGATIVE) Urine Barbiturates Screen Neg (NEGATIVE) Urine Phencyclidine Screen Neg (NEGATIVE) Urine Amphetamines Screen Neg (NEGATIVE) Urine Benzodiazepines Screen Neg (NEGATIVE) Urine Cocaine Screen Neg (NEGATIVE) Urine Cannabinoids Screen Neg (NEGATIVE) Influenza Type A Antigen Negative (Negative) Influenza Type B Antigen Negative (Negative) Hemoglobin A1c 5.1 % A1C (<5.7) White Blood Count 6.4 10^3/uL (4.4-10.8) Red Blood Count 4.58 10^6/uL (4.0-5.20) Hemoglobin 13.2 g/dL (12.2-16.2) Hematocrit 39.9 % (36.0-46.0) Mean Corpuscular Volume 87.1 fL (80.0-100.0) Mean Corpuscular Hemoglobin 28.7 pg (28.0-32.0) Mean Corpuscular Hemoglobin Concent 33.0 g/dL (32.0-36.0) Red Cell Distribution Width 12.8 % (11.8-14.3) Platelet Count 216 10^3/uL (140-450) Mean Platelet Volume 7.4 fL (6.9-10.8) Neutrophils (%) (Auto) 40.3 % (37.0-80.0) Lymphocytes (%) (Auto) 48.5 % (10.0-50.0) Monocytes (%) (Auto) 10.7 % (0.0-12.0) Eosinophils (%) (Auto) 0.1 % (0.0-7.0) Basophils (%) (Auto) 0.4 % (0.0-2.0) Neutrophils # (Auto) 2.6 10 ^3/uL (1.6-8.6) Lymphocytes # (Auto) 3.1 10 ^3/uL (0.4-5.4) Monocytes # (Auto) 0.7 10 ^3/uL (0-1.3) Eosinophils # (Auto) 0 10 ^3/uL (0-0.8) Basophils # (Auto) 0 10 ^3/uL (0-0.2) Nucleated Red Blood Cells 0.1 % Erythrocyte Sedimentation Rate 2 mm/hr (0-20) Prothrombin Time 10.9 sec (9.3-11.8) Prothrombin Time INR 1.03 (0.9-1.15) Activated Partial Thromboplast Time 27.1 SEC (24.5-34.5) Lactic Acid Level 1.0 mmol/L (0.4-2.0) Magnesium Level 2.1 mg/dL (1.6-2.6) Total Bilirubin < 0.2 mg/dL (0.2-1.0) Direct Bilirubin < 0.1 mg/dL (<0.3) Aspartate Amino Transferase (AST) 22 U/L (13-40) Alanine Aminotransferase (ALT) 29 U/L (7-40) Alkaline Phosphatase 96 U/L (46-116) C-Reactive Protein High Sensitivity 0.03 mg/dL (<1.0) Total Protein 6.6 g/dL (5.7-8.2) Albumin 4.4 g/dL (3.2-4.8) Thyroid Stimulating Hormone (TSH) 2.66 uIU/mL (0.55-4.78) Beta HCG, Quantitative 0.6 mIU/mL (1.5-4.2) Plasma/Serum Blood Alcohol < 3.0 mg/dL (<10) Other Laboratory Tests 05/01/24 06:37 04/30/24 02:23 Brief Hx & Hospital Course: This is a 38-year-old female with past medical history of 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 Patient reports that she was feeling sore 3 days back during work, and that she woke up from sleep with intense 10/10 back pain from the neck to the lowest edge of the shoulder blades. She has been experiencing this pain for the past 3 nights, last night it was unbearable and therefore she decided to call EMS. She denies loss of urine or stool. Reports chronic constipation, last bowel movement four days back. Her pain worsens with any kind of bodily movements, more with left arm and left leg movement as compared to the right. She denies fever or chills or any trauma. Reports tingling of the bilateral arms. Denies muscle weakness. Reports last seizure was in February. On arrival, CT thoracic spine and cervical spine were completed which were unremarkable. Past medical/surgical history: See above Family history: Breast and liver cancer in maternal aunt Social history lives with mom and has 2 kids. Denies smoking/alcohol/drug use Home medications: Dilantin, gabapentin, Zoloft, ibuprofen, used hydroxychloroquine which did not improve her SLE, used Benlysta but stopped due to adverse effects. During the hospitalization, CT scan thoracic and cervical spine were completed which showed loss of cervical curvature. Surgeon was consulted. Patient was started on baclofen and IV methylprednisolone 80 mg Q 8 hourly. MRI Cervical and thoracolumbar spine completed which showed Straightening of the cervical spine with degenerative disc changes at C5-C6 and C6-C7. There is no spinal canal stenosis. There is moderate left and mild right neural foraminal stenosis at C5-C6. Next day, patient's condition improved and she was ambulatory. Physical therapy was consulted, and the patient ambulated fine. Discharge instructions: 05/01-patient has been in was stable, clinically stable and vitally stable therefore she has been discharged home with the recommendations to follow up with the spinal surgeon as outpatient, follow up with physical therapist as outpatient, follow up with primary care physician at discharge clinic within 7 days. Discharge medication includes Medrol pack. Discharge diagnosis: Acute onset intractable back pain - differentials include spinal stenosis, degenerative disc disease, compression fracture Incapacitating neck pain with clinical suspicion of cervical radiculopathy Loss of lordosis and disc space narrowing at C5/6 and C6/7 History of degenerative disc disease History of Right shoulder radiculopathy History of scoliosis History of SLE-not on any medication-previously used hydroxychloroquine and Benlysta History of epileptic seizures status post brain surgery 2019-on Dilantin History of anxiety Consults/Reason for consult Spinal surgeon consulted for radiculopathy Operations or Procedures MRI CERVICAL SPINE CLINICAL HISTORY: Cervicalegia, hx of ddd with tingling in UE Comparison: CT CERVICAL WITHOUT CONTRAST on DOS: 04/30/24 Technique: Multi planar, multi sequence MR images of the cervical spine without intravenous contrast. FINDINGS: The cervical spinal cord demonstrates normal caliber and signal. There is retro cerebellar CSF collection in the posterior cranial fossa which May relate to judith cisterna magna versus arachnoid cyst. The craniocervical junction is within normal limits. The vertebral body heights and bone marrow signal are appropriate. There is straightening of the cervical lordosis. There is disc desiccation with disc space narrowing at C5-C6. At C2-C3, C3-C4 and C4-C5 there is no significant disc herniation. There is no spinal canal or neuroforaminal stenosis. At C5-C6 there is disc bulge and bilateral uncovertebral arthropathy, [id number]-right. There is no spinal canal stenosis. There is moderate left and mild right neural foraminal stenosis. At C6-C7 there is a 2-3 mm broad-based right paracentral disc protrusion. There is indentation of the ventral thecal sac without canal or neural foraminal stenosis. At C7-T1 there is no significant disc herniation. There is no spinal canal or neural foraminal stenosis. IMPRESSION: 1. Straightening of the cervical spine with degenerative disc changes at C5-C6 and C6-C7. There is no spinal canal stenosis. 2. There is moderate left and mild right neural foraminal stenosis at C5-C6. HS:Y ATED BY: VIELKA MOELLER MD DICTATED DATE/TIME: 04/30/24 132 SIGNED BY: VIELKA MOELLER MD SIGNED DATE/TIME: 04/30/24 132 CC: Condition at Discharge: Stable Final Diagnosis/Problems List Acute onset intractable back pain - secondary to cervical radiculopathy Loss of lordosis and disc space narrowing at C5/6 and C6/7 History of degenerative disc disease History of Right shoulder radiculopathy History of scoliosis History of SLE-not on any medication-previously used hydroxychloroquine and Benlysta History of epileptic seizures status post brain surgery 2019-on Dilantin History of anxiety Discharge Disposition: Home Discharge Instruct/Medications Diet: Regular Activity: Light activity Follow Up/Referral: Follow up with the spinal surgeon Dr. Toney as outpatient within 7 days Follow up with primary care physician and discharge clinic appointment within 7 days Medications: Medrol Dosepak Discharge Statement: "Patient was advised to return to the ER or call 911 if any headaches, dizziness, shortness of breath, chest pain, abdominal pain, bleeding, fevers, or worsening of medical condition. Patient was counseled about treatment plan, medications, possible side effects, patientverbalized understanding. All questions were answered to the best of my ability. This discharge took greater then 30 minutes in planning, reviewing documentation, counseling the patient, and discussing with other team members." ASSESSMENT ASSESSMENT Assessment Acute onset intractable back pain - differentials include spinal stenosis, degenerative disc disease, compression fracture Incapacitating neck pain with clinical suspicion of cervical radiculopathy Loss of lordosis and disc space narrowing at C5/6 and C6/7 History of degenerative disc disease History of Right shoulder radiculopathy History of scoliosis NANCY ALLEN RESIDENT May 01, 2024 17:10
[2024-05-01] MEDS ORDERED: CYCL-838 PO (17:34)
== END 2024-05-01 21:52 | disposition home or self-care (01) | DRG 552 ==
LOC: EDBD 01:38 → ER 01:38 → OVERFLOW 04:03 → WEST WING 22:55
PROVIDERS: ADMIT Student in an Organized Health Care Education/Training Program; ATTEND Student in an Organized Health Care Education/Training Program
DX: M48.02 Spinal stenosis, cervical region (principal); F41.9 Anxiety disorder, unspecified; G40.909 Epilepsy, unspecified, not intractable, without status epilepticus; M62.838 Other muscle spasm; M50.10 Cervical disc disorder with radiculopathy, unspecified cervical region; Z98.891 History of uterine scar from previous surgery; Z80.8 Family history of malignant neoplasm of other organs or systems; Z79.899 Other long term (current) drug therapy
CPT/HCPCS: 36415; 71045; 72125; 72128; 72141; 72146; 80048; 80076; 80307; 80320; 81001; 82306; 82607; 82746; 83036; 83605; 83735; 83880; 84443; 84702; 85025; 85610; 85652; 85730; 86141; 87426; 87804; 96372; 96374; 96375; 97163; G0378; J1885; J2250; J2405